=== PATIENT | female | born 1955 | race Caucasian/White ===

== ENCOUNTER 2022-01-17 10:05 | Emergency (ER) | payer MEDICARE ==
[2022-01-17] MEDS ORDERED: Sodium Chloride 0.9% 100 ML IV SCH (12:30)
[2022-01-17] MEDS ORDERED: Iopamidol 755 Mg/ML 100 ML Bottle IVPUSH ONE (12:30)
[2022-01-17] MEDS ORDERED: Sodium Chloride 0.9% 10 ML Syringe FLUSH PRN (12:30)
[2022-01-17] MEDS ORDERED: Enoxaparin 150 MG/1 ML Syringe SUBCUT STA (14:18)
== END 2022-01-17 16:00 | disposition home or self-care (01) ==
LOC: JD.ED 10:05
DX: I26.99 Other pulmonary embolism without acute cor pulmonale (principal); I10 Essential (primary) hypertension; Z91.040 Latex allergy status; Z79.899 Other long term (current) drug therapy; Z20.822 Contact with and (suspected) exposure to COVID-19
CPT/HCPCS: 36415; 71045; 71275; 80053; 84484; 85025; 85379; 85610; 93005; 96360; 96372; 99285; J1650; J3490; Q9967; U0002; 93010; 99284